=== PATIENT | male | born 1990 | race Caucasian/White ===

== ENCOUNTER 2022-03-20 19:52 | Emergency (ER) | payer BC, SELFPAY ==
[2022-03-20 20:06] VITALS: BP 154/97; PULSE 89; RESP 15; TEMP 37.1; O2SAT 99; BMI 35.4
--- NOTE | 2022-03-20 20:29 | ED_ITS ---
HPI - Eye Problem General: Chief complaint: Eye Problems Stated complaint: possiable rust in L Eye Time Seen by Provider: 03/20/22 20:12 History of Present Illness: 31-year-old male patient comes in today with a probable piece of rust in his left eye. Patient was grinding yesterday and this morning he felt like there is something in his eye. Patient has continued irritation all day. Patient appears in mild pain. No obvious swelling is noted to the eyelids. Patient has some erythema and redness to the conjunctiva. Review of Systems General: Reports: 10 or more systems reviewed and unremarkable except in HPI and below Eyes: Reports: eye redness Physical Exam Const: COMMON NORMALS: alert Eye: VISUAL ACUITY: Yes acuity normal CONJUNCTIVA: Yes conjunctival abnormal positive left conjunctival injection CORNEA: Yes fluorescein used Resp: COMMON NORMALS: normal respiratory effort Cardio: COMMON NORMALS: regular rate RATE: regular rate Neuro: SENSORIUM/ORIENTATION: Yes alert Procedures FB Removal Eye Location: eye (L) Topical anesthetic used: tetracaine Foreign body: metal Evidence of corneal penetration: No Technique: irrigation and cotton tip swab Procedure performed under: direct visualization with magnification Post-procedure medication: ophthalmic antibiotic Patient tolerated procedure: well Complications: incomplete foreign body removal Course Vital Signs: Vital signs: Vital Signs Temperature 98.8 F 03/20/22 20:06 Pulse Rate 89 03/20/22 20:06 Respiratory Rate 15 03/20/22 20:06 Blood Pressure 154/97 03/20/22 20:06 Pulse Oximetry 99 03/20/22 20:06 MDM - Eye Problem Medical Decision Making 31-year-old male patient comes in with foreign body to the left cornea. On exam we note a very fine speck of rust is approximately 0.1 mm. Under fluorescein no ulceration was noted. Patient refused the use of the bevel of the needle to remove the foreign body. We attempted with a moistened cotton swab with no changes noted. Reviewed recommendations for treatment with eye career resource specialist for further treatment. We will put patient on a steroid and antibiotic eyedrop for pain and discomfort and prophylactic therapy. Due to the minute size of the foreign body I believe that the patient will be fine but I recommended strongly for him to follow-up in order for further evaluation and consideration of rust ring removal. Patient reported understanding agreed to plan. Discharge Plan Discharge Patient Disposition: Home Clinical Impression: Acute foreign body of left cornea Qualifiers: Encounter type: initial encounter Qualified Code(s): T15.02XA - Foreign body in cornea, left eye, initial encounter Condition: Stable Discharge Orders: Discharge ED (Routine); Ordered 03/20/22 Ordered By: Manny Rodrigues Discharge Diet: Usual diet Discharge Activity: Increase activity as tolerated Patient Instructions: Eye Foreign Body (ED) Activity Restrictions/Additional Instructions: Follow-up with eye career resource specialist within 1 to 3 days for reevaluation. Use antibiotic eyedrops 2 drops to the affected eye 4 times a day while awake for the next 7 days. Use acetaminophen and ibuprofen for pain. Drink plenty of water with medication. Follow-up with primary care for further instruction. Return to ED for new concerns. Coding Level of Care Code ED Ref[facility] [employer] for Chiara Boyd
[2022-03-20] MEDS: fluorescein 1 mg Strip EYE-LEFT (20:46)
[2022-03-20] MEDS: tetracaine 0.5% Op Soln 4 mL Btl 1 DROP EYE-LEFT (20:47)
[2022-03-20] MEDS: neomycin-poly-dex Op 5 mL Btl 2 DROP EYE-LEFT (20:48)
== END 2022-03-20 20:43 | disposition home or self-care (01) ==
PROVIDERS: Emergency Provider Nurse Practitioner Family
DX: T15.02XA Foreign body in cornea, left eye, initial encounter (principal); X58.XXXA Exposure to other specified factors, initial encounter
CPT/HCPCS: 99283